=== PATIENT | female | born 1990 | race Caucasian/White ===

== ENCOUNTER 2021-05-05 10:54 | Observation (INO) | payer BC, SELFPAY ==
[2021-05-05 11:10] VITALS: BMI 29.4
[2021-05-05 11:37] LABS: Add Urine Microscopic? YES; Appearance Urine Cloudy (Clear); Bilirubin Urine Negative (Negative); Blood Urine Negative (Negative); Color Urine Yellow (Yellow); Glucose Urine UA Negative (Negative); Ketones Urine 1+ mg/dL (Negative); Leukocyte Esterase Ur 3+ LEU/UL (Negative); Mucus Urine Few /lpf; Nitrate Urine Negative (Negative); Protein Urine 1+ mg/dL (Negative); Specific Grav Ur 1.021 (1.001-1.035); Squamous Epithelial Cell Urine Many /hpf (Few); Urobilinogen Urine Negative mg/dL (<2.0); WBC Urine 16-20 /hpf
[2021-05-05] MEDS: LACTATED RINGERS 1,000 ML 999 ML IV CONT (11:46)
[2021-05-05 11:47] VITALS: BP 136/75; PULSE 93
[2021-05-05] MEDS: ONDANSETRON INJ 4 MG/2 ML VIAL IV PUSH (11:47)
--- NOTE | 2021-05-05 11:58 | PC.NURSE ---
called Dr. Oconnor notified pt admission for dizziness. UA result reported. pt feels better after PO hydration. Okay to discharge
[2021-05-05 11:59] VITALS: TEMP 36.8
[2021-05-05] MEDS: TERBUTALINE SULFATE 1 MG/ML VIAL 0.25 MG SUB-Q (12:33)
[2021-05-05] MEDS: DEXTROSE 5%/LACTATED RINGERS 1,000 ML 200 ML IV CONT (13:55)
[2021-05-05] MEDS: PROMETHAZINE HCL 25 MG/ML AMPUL 12.5 MG IV PUSH (13:59)
[2021-05-05] MEDS: METOCLOPRAMIDE HCL INJ 10 MG/2 ML VIAL IV PUSH (15:02)
--- NOTE | 2021-05-05 16:49 | P.HP_ITS ---
Obstetrics - Admit Note Admission Note: 30 y/o at 34 5/7 weeks who presented with upper abdominal pain. Good movement. After arrival here, she has had several episodes of nausea / vomiting. No fevers. Has had some contractions that responded to IV hydration. AVSS NST reactive TOCO: contractions irregularly ABD soft, nontender, gravid, vertex EXT nontender Cervix closed A; IUP at 34 5/7 weeks with nausea, vomiting. P: Home with [facility]. F/u office next week.
== END 2021-05-05 17:40 | disposition home or self-care (01) ==
PROVIDERS: Admitting Provider Obstetrics & Gynecology; PCP Family Medicine; Visit Provider Obstetrics & Gynecology
DX: O26.893 Other specified pregnancy related conditions, third trimester (principal); R10.10 Upper abdominal pain, unspecified; Z3A.34 34 weeks gestation of pregnancy
CPT/HCPCS: 81001; 87086; 87088; 96372; 96374; 96375; G0378; G0379; J2405; J2550; J2765; J3105; J7120; J7121

== ENCOUNTER 2021-06-02 22:17 | Inpatient (IN) | payer BC, SELFPAY ==
[2021-06-02] VITALS (22 sets, daily range): BP systolic 106–142; BP diastolic 51–95; PULSE 66–129; RESP 18; TEMP 36.6–36.7; O2SAT 98–100; BMI 29.2
[2021-06-02] MEDS: LACTATED RINGERS 1,000 ML 125 ML IV CONT (22:31)
--- NOTE | 2021-06-02 22:47 | LDADM ---
This patient, Annalee Viera, was admitted to Labor/Delivery/Recovery 106 on 06/02/21 at 22:17. Plans for labor, pain management and were discussed with patient. Patient/family oriented to hospital policies and general routines including ID bracelet, bed and alarms, visiting hours, pain management, procedures, bathroom and other care routines, personal items, smoking policy, room service/diet and guest tray routines, infant security routines, and visiting hours. Patient/Family are encouraged to report perceived risks to care and to ask questions if they do not understand what they are told or what they should do. See OBIX for further documentation.
[2021-06-02 22:50] LABS: Basophils Percent Auto 0.2 % (0.2-1.2); Eosinophils Percent Auto 0.2 % (0-4.4); Hematocrit 32.4 % (37.0-47.0); Hemoglobin 10.3 g/dL (12.0-15.0); Immature Granulocyte Absolute 0.06 K/mm3 (0.00-0.031); Immature Granulocyte Percent A 0.4 % (0-0.5); Lymphocytes Absolute Auto 2.32 K/mm3 (0.9-3.2); Lymphocytes Percent Auto 17.1 % (18.3-44.2); Mean Corpuscular HGB Conc 31.8 g/dl (32-36); Mean Corpuscular Hemoglobin 25.8 pg (26-34); Mean Corpuscular Volume 81.2 fl (80-100); Mean Platelet Volume 10.7 fl (7.4-10.4); Monocytes Absolute Auto 0.9 K/mm3 (0.1-0.6); Monocytes Percent Auto 6.9 % (2.6-8.5); Neutrophils Absolute Auto 10.2 K/mm3 (1.3-6.7); Neutrophils Percent Auto 75.2 % (45.5-73.1); Platelet Count Result 258 k/mm3 (150-375); Red Blood Count 3.99 M/mm3 (4.2-5.4); Red Cell Distribution Width 14.5 % (11.5-14.5); White Blood Count 13.6 K/mm3 (4.5-10.0)
--- NOTE | 2021-06-02 23:12 | WPDANESEPP ---
Anes - Eval Pre Procedure Procedure: labor epidural Date/Time: 06/02/21 23:12 Surgeon: anurag Pre Op Diagnosis: Contractions Patient Data Age: 30 Gender: F Height: 1.6 m Weight: 75 kg Last Vital Signs Pulse 93 06/02/21 23:01 BP 142/95 H 06/02/21 23:01 Allergies Allergy/AdvReac Type Severity Reaction Status Date / Time No Known Allergies Allergy Verified 05/02/20 08:39 Home Medications Medication Instructions Recorded Confirmed Type albuterol sulfate 90 mcg/actuation 1 puff INHALATION Q4H PRN #8.5 gm 05/07/19 05/12/21 Rx aerosol inhaler cyanocobalamin (vitamin B-12) 1,000 mcg PO DAILY 11/02/19 05/12/21 History 1,000 mcg tablet prenat.vits,brian,tch-insd-gxftf 1 tablet PO DAILY 10/31/20 05/12/21 History metoclopramide HCl [Reglan] 10 mg PO Q6H PRN #30 tablet 05/05/21 05/12/21 Rx Laboratory Tests 06/02/21 06/02/21 22:45 22:45 WBC 13.6 K/mm3 H K/mm3 (4.5-10.0) RBC 3.99 M/mm3 L M/mm3 (4.2-5.4) Hgb 10.3 g/dL L g/dL (12.0-15.0) Hct 32.4 % L % (37.0-47.0) MCV 81.2 fl fl (80-100) MCH 25.8 pg L pg (26-34) MCHC 31.8 g/dl L g/dl (32-36) RDW 14.5 % % (11.5-14.5) Plt Count 258 k/mm3 k/mm3 (150-375) MPV 10.7 fl H fl (7.4-10.4) Immature Gran % (Auto) 0.4 % % (0-0.5) Neut % (Auto) 75.2 % H % (45.5-73.1) Lymph % (Auto) 17.1 % L % (18.3-44.2) [place] % (Auto) 6.9 % % (2.6-8.5) Eos % (Auto) 0.2 % % (0-4.4) Baso % (Auto) 0.2 % % (0.2-1.2) Lymph # (Auto) 2.32 K/mm3 K/mm3 (0.9-3.2) [place] # (Auto) 0.9 K/mm3 H K/mm3 (0.1-0.6) Eos # (Auto) 0.0 K/mm3 K/mm3 (0-0.3) Baso # (Auto) 0.0 K/mm3 K/mm3 (0.0-0.1) Abs Immat Gran (auto) 0.06 K/mm3 H K/mm3 (0.00-0.031) Absolute Neuts (auto) 10.2 K/mm3 H K/mm3 (1.3-6.7) Absolute Nucleated RBC 0.0 K/mm3 K/mm3 (0.0-0.012) Nucleated RBC % 0.0 % % (0.0-0.2) RPR Pending Patient hx anesthesia problems: none Family hx anesthesia problems: none Results Review: All pre-operative results and documents have been reviewed as part of the pre-operative evaluation. [facility] Past Medical History Medical History (Updated 10/31/20 @ 08:58 by De Bhatia MD) BMI 24.0-24.9, adult Incidental Migraine with aura and without status migrainosus Mild exercise-induced asthma Mixed hyperlipidemia Psoriasis Seasonal allergies Vitamin B12 deficiency anemia Surgical History Surgical History H/O breast augmentation Family History Family History (Updated 06/02/21 @ 22:59 by Elise Alexander RN) Father , Overdosed on medication Brain tumor Grandparent , Paternal Grandfather Lung cancer, middle lobe Mother Hypertension Social History Social History (Updated 10/31/20 @ 08:41 by Jackeline Rizzo MA) Smoking status: Never smoker Second hand tobacco smoke exposure: No Alcohol intake: former Alcohol use details: Wine once every other month Substance use: never Substance use type: does not use Spiritual care concerns: No Exam Day of Procedure 06/02/21 23:12
[2021-06-03] VITALS (46 sets, daily range): BP systolic 87–141; BP diastolic 55–90; PULSE 63–172; RESP 16–18; TEMP 36.1–36.9; O2SAT 100
[2021-06-03] MEDS: LACTATED RINGERS 1,000 ML 125 ML IV CONT
[2021-06-03] MEDS: OXYTOCIN 30 UNITS/NS 500 ML 30 UNITS/500 ML BAG 999 UNITS IV CONT (01:45)
--- NOTE | 2021-06-03 01:58 | WPDOBADMIT ---
Obstetrics - Admit Note Admission Note: record reviewed. Additions to the history and/or subsequent changes in the physical findings follow. 30 y/o at 38 6/7 weeks here with contractions. Comfortable with epidural. GBS neg. Cervix 6 cm on admission, completely dilated after epidural placed. AVSS NST reactive TOCO: contractions every 2-3 min ABD soft, nontender, gravid, vertex EXT nontender Cervix C/+2 A: IUP at term with labor. P: See delivery note.
--- NOTE | 2021-06-03 02:00 | P.PCNOB_ITS ---
OB - Delivery Note Procedure Delivery date: 06/03/21 Procedure: Induction method: None Delivery monitor: External FHT and External Uterine Route of delivery: Laceration Description: Periurethral (right) Delivery repair: vicryl (3-0) Specimen: Yes (cord blood) Quantitative Blood Loss (ml): 180 Anesthesia type: Epidural Disposition: PACU Complications: None Narrative: 30 y/o at 38 6/7 weeks gestation who presented to the hospital with contractions. Cervix 6 cm on admission. Labor was diagnosed. She received an epidural for pain control. Her labor progressed and her cervix dilated completely. SROM with clear fluid. She pushed with good effort and delivered the 's head to the perineum. A loose nuchal cord was splinted and the body delivered. The cord was reduced and the nose and mouth were bulb suctioned. After a delay, the cord was clamped and cut. The infant was handed off the field. Cord blood was collected. The placenta delivered spontaneously and was grossly normal in appearance. The usual 3 vessel cord was noted. A right sided periurethral laceration was sustained. This was reapproximated using 3 0 Vicryl in interrupted figure of eight fashion. Excellent hemostasis resulted as did excellent reapproximation of the normal anatomy. Needle and instrument counts were correct. The patient was taken to recovery room in s table condition. The went to the nursery in stable condition. I was present and scrubbed for the entire delivery. [place] Baby Date of : 06/03/21 Time of : 02:00 Weeks of gestation at delivery: 38 Infant gender: Male Weight (pounds): 6 Weight (ounces): 13 presentation: vertex position: Left Occiput Anterior Placenta delivery description: Spontaneous and Normal Configuration Cord Vessel Description: 3 Vessels, Nuchal Cord and Delayed Cord Clamping score one minute: 9 score five minutes: 9
--- NOTE | 2021-06-03 02:03 | P.DS_ITS ---
DS: Admitting Diagnosis Discharge Date 06/04/21 Admitting Diagnosis IUP at 38 6/7 weeks Labor DS: Discharge Diagnosis Discharge Diagnosis (1) (normal spontaneous vaginal delivery): Code(s): O80 - Encounter for full-term uncomplicated delivery Status: Acute OB - DS: Summary OB Procedures : None OB Procedures Intrapartum: Spontaneous Vag Delivery OB Procedures: : None DS: Data Data Completed and Pending Labs on day of discharge: Labs from last 24 hours 06/02/21 06/02/21 06/02/21 22:46 22:45 22:45 WBC 13.6 H RBC 3.99 L Hgb 10.3 L Hct 32.4 L MCV 81.2 MCH 25.8 L MCHC 31.8 L RDW 14.5 Plt Count 258 MPV 10.7 H Immature Gran % (Auto) 0.4 Neut % (Auto) 75.2 H Lymph % (Auto) 17.1 L [place] % (Auto) 6.9 Eos % (Auto) 0.2 Baso % (Auto) 0.2 Lymph # (Auto) 2.32 [place] # (Auto) 0.9 H Eos # (Auto) 0.0 Baso # (Auto) 0.0 Abs Immat Gran (auto) 0.06 H Absolute Neuts (auto) 10.2 H Absolute Nucleated RBC 0.0 Nucleated RBC % 0.0 RPR Pending Blood Type A Positive Antibody Screen Negative Discharge Plan Discharge Attending physician on discharge: Gopal Escobar Discharging Clinician: Gopal Escobar Patient Disposition: Home, Self-Care Activity: pelvic rest Diet: regular Discharge Instructions: Call or return if temperature above 100.4? F, increased abdominal pain, increased vaginal bleeding or any new problems. Stand Alone Forms: General Discharge Information Follow-up/Referrals: Gopal Escobar MD [Physician] - 6 Weeks Discharge Medications: New ibuprofen 600 mg tablet 600 mg PO Q6H PRN (Reason: cramps) Qty: 30 RF: 0 ferrous sulfate 325 mg (65 mg iron) tablet 325 mg PO DAILY Qty: 30 RF: 0 Continued albuterol sulfate [ProAir HFA] 90 mcg/actuation HFA aerosol inhaler 1 puff INHALATION Q4H PRN (Reason: shortness of breath) Qty: 8.5 RF: 11 cyanocobalamin (vitamin B-12) 1,000 mcg tablet 1,000 mcg PO DAILY RF: 0 prenat.vits,brian,cju-bflp-ibqsi Tablet 1 tablet PO DAILY RF: 0 Discontinued metoclopramide HCl [Reglan] 10 mg tablet 10 mg PO Q6H PRN (Reason: nausea and vomiting) Qty: 30 RF: 0 Date of admission: 06/02/21 22:17 Primary Care Provider: De Bhatia Admitting Provider: Gopal Escobar Attending physician on admission: Gopal Escobar Condition: Stable
[2021-06-03] MEDS: OXYTOCIN 30 UNITS/NS 500 ML 30 UNITS/500 ML BAG 125 UNITS IV CONT (02:22)
[2021-06-03] MEDS: IBUPROFEN 600 MG TABLET PO ×3 (04:37→19:01)
--- NOTE | 2021-06-03 05:03 | OBPPTRN ---
Patient transferred to post room #288 via W/C. Support person present. Oriented to unit, room, information board, rooming in, admission packet and security measures. Patient verbalizes understanding.
[2021-06-03] MEDS: WITCH HAZEL 40 PADS 1 PAD TOPICAL (09:19)
[2021-06-03] MEDS: DOCUSATE SODIUM 100 MG CAPSULE PO ×2 (09:19→19:01)
[2021-06-03] MEDS: MULTIVIT/MIN/PREN/FOL AC/IRON TABLET 1 TAB PO (09:19)
[2021-06-03] MEDS: ACETAMINOPHEN 325 MG TABLET 650 MG PO ×2 (09:19→23:57)
[2021-06-03] MEDS: POLYSACCHARIDE IRON COMPLEX 150 MG CAPSULE PO (19:00)
[2021-06-04] MEDS: IBUPROFEN 600 MG TABLET PO ×2 (04:05→13:42)
[2021-06-04 05:47] LABS: Hematocrit 29.5 % (37.0-47.0); Hemoglobin 9.3 g/dL (12.0-15.0)
[2021-06-04] MEDS: POLYSACCHARIDE IRON COMPLEX 150 MG CAPSULE PO (08:12)
[2021-06-04] MEDS: DOCUSATE SODIUM 100 MG CAPSULE PO (08:12)
[2021-06-04] MEDS: MULTIVIT/MIN/PREN/FOL AC/IRON TABLET 1 TAB PO (08:13)
[2021-06-04 08:22] VITALS: BP 122/81; PULSE 81; RESP 14; TEMP 36.5; O2SAT 99
[2021-06-04] MEDS: ACETAMINOPHEN 325 MG TABLET 650 MG PO (08:24)
--- NOTE | 2021-06-04 10:50 | WPDANLDPN2 ---
Anes-Prog Note L&D Date/Time: 06/04/21 10:50 Comfortable throughout: labor and delivery Neuraxial method: epidural Epidural/Spinal procedure site: clean & non-tender Neuro status: Neuro function grossly intact. Cardiovascular status: normal Respiratory status: normal Airway patency: baseline Mental status: baseline Post-Op hydration status: normal Vital Signs: Last Vital Signs Temp 97.7 F 06/04/21 08:22 Pulse 81 06/04/21 08:22 Resp 14 06/04/21 08:22 BP 122/81 06/04/21 08:22 Pulse Ox 99 06/04/21 08:22 Pain score (VAS): 0 I/O: Intake & Output 06/03/21 06/04/21 06/04/21 23:59 07:59 15:59 Intake Total 350 Balance 350 Post-procedural complaints: none Patient feedback: Patient satisfied with anesthetic care.
--- NOTE | 2021-06-04 10:58 | PM.OBPNVD ---
OB - PN: Subj Subjective Date/time seen: 06/04/21 10:58 Narrative: Pain OK. Desires circumcision for son. Would like to go home. OB - PN: Obj Data Labs CBC & Chem 7: 06/04/21 04:12 Labs: Laboratory Results - last 24 hr 06/04/21 04:12 Hgb 9.3 L Hct 29.5 L OB - PN A/P Plan Comments: A: PPD#1, doing well. P: Reviewed circ. Home to f/u 6 weeks. Exam Psych: Other: AVSS ABD soft, nontender, fundus firm EXT nontender
--- NOTE | 2021-06-04 14:06 | PC.NURSE ---
Patient viewed the discharge video Mother & Baby Care, The First Two Weeks . Patient was given the opportunity and encouraged to ask questions. Patient verbalized understanding of information shared and has been given the mother/baby guide for home reference.
[2021-06-05 07:54] VITALS: BP 119/71; PULSE 73; RESP 20; TEMP 36.8; O2SAT 100
[2021-06-05 13:00] LABS: Rapid Plasma Reagin Non-Reactive (NonReactive)
== END 2021-06-04 13:52 | disposition home or self-care (01) | DRG 807 ==
LOC: ANHLDR 06-03 02:04 → ANHOB2 06-03 05:50
PROVIDERS: Admitting Provider Obstetrics & Gynecology; PCP Family Medicine; Visit Provider Obstetrics & Gynecology
DX: O69.81X0 Labor and delivery complicated by cord around neck, without compression, not applicable or unspecified (principal); Z37.0 Single live birth; Z3A.37 37 weeks gestation of pregnancy; O71.82 Other specified trauma to perineum and vulva; O99.72 Diseases of the skin and subcutaneous tissue complicating childbirth; L40.9 Psoriasis, unspecified; O99.02 Anemia complicating childbirth; D51.9 Vitamin B12 deficiency anemia, unspecified; O99.52 Diseases of the respiratory system complicating childbirth; J45.909 Unspecified asthma, uncomplicated
CPT/HCPCS: 36415; 85014; 85018; 85025; 86592; 86850; 86900; 86901; A9270; J2590; J2795; J7120

== ENCOUNTER 2022-06-24 10:10 | Emergency (ER) | payer BC, SELFPAY ==
[2022-06-24 10:25] VITALS: BP 119/67; PULSE 77; RESP 16; TEMP 36.3; O2SAT 100
--- NOTE | 2022-06-24 10:39 | ED.GENADULT ---
HPI - General Adult General Chief complaint: Upper Respiratory Infection Stated complaint: sorethroat Time Seen by Provider: 06/24/22 10:39 Source: patient Mode of arrival: ambulatory Limitations: no limitations History of Present Illness HPI narrative: 31-year-old female patient presents to the [facility] have is rest past several weeks. Patient states when he has strep her son has tested positive twice and her tested positive today. Patient does not complain of any pain to the throat. Patient states she recently got over COVID and is currently on an inhaler at this time with the steroid. Denies any fevers, body aches or chills. Patient states she did wake up today with a headache pain Related Data Home Medications Medication Instructions Recorded Confirmed cyanocobalamin (vitamin B-12) 1,000 mcg PO DAILY 11/02/19 06/24/22 1,000 mcg tablet rizatriptan 10 mg tablet (Maxalt) See Rx Instructions PO .COMPLEX 11/21/21 06/24/22 Migraines fluticasone propionate 110 2 puff inhalation BID 06/24/22 06/24/22 mcg/actuation HFA aerosol inhaler (Flovent HFA) Allergies Allergy/AdvReac Type Severity Reaction Status Date / Time No Known Allergies Allergy Verified 06/24/22 10:35 Review of Systems Review of Systems: CONSTITUTIONAL: Denies fever, chills, or sweats. EYES: Denies visual changes, redness, or discharge. ENT: Denies rhinorrhea, congestion,positive sore throat, or otalgia. CARDIOVASCULAR: Denies chest pain, palpitations, or edema. RESPIRATORY: Denies cough or dyspnea. GASTROINTESTINAL: Denies abdominal pain, nausea, vomiting, or diarrhea. GENITOURINARY: Denies dysuria or hematuria. SKIN: Denies rash or itching. MUSCULOSKELETAL: Denies back pain, joint pain, or myalgia. NEUROLOGIC: Denies headache, numbness, or weakness. PSYCHIATRIC: Denies anxiety or depression. [facility] Past Medical History Medical History Anemia BMI 24.0-24.9, adult BMI 25.0-25.9,adult BMI 26.0-26.9,adult Incidental Migraine with aura and without status migrainosus Mild exercise-induced asthma Mild intermittent asthma Mixed hyperlipidemia (normal spontaneous vaginal delivery) Psoriasis Seasonal allergies Vitamin B12 deficiency anemia Surgical History Surgical History H/O breast augmentation Family History Family History Father , Overdosed on medication Brain tumor Grandparent , Paternal Grandfather Lung cancer, middle lobe Mother Hypertension Social History Social History Smoking status: Never smoker Second hand tobacco smoke exposure: No Alcohol intake: former Alcohol use details: Wine once every other month Substance use: never Substance use type: does not use Lack of Transportation: No Lack of Food: Never True Current Housing: I Have Housing Concerned About Future Housing: No Difficulty Paying Gas/Electric Bills: No Difficulty Paying for Meds: No Currently Unemployed: No Education: Trade/Vocational Certificate Difficulty w/ Childcare or Family Care: No Spiritual care concerns: No Comments At the time of my signature I agree with nursing past medical history, surgical, social, and family history. There is no relevant family history pertinent to the presenting complaint. Exam Narrative: GENERAL: Well-appearing, well-nourished, and in no acute distress. HEAD: Normocephalic, atraumatic. EYES: PERRLA and EOMI. ENT: Nares with erythema and edema noted bilaterally, no rhinorrhea or epistaxis. Mucous membranes moist. bilateral TMs are clear no erythema from bodies the canal. Posterior pharynx with slight erythema but no tonsillar enlargement, no exudates or lesions present. NECK: Supple. No lymphadenopathy CHEST: Clear to auscul
== END 2022-06-24 10:47 | disposition home or self-care (01) ==
PROVIDERS: Emergency Provider Nurse Practitioner Family; PCP Family Medicine
DX: J02.9 Acute pharyngitis, unspecified (principal); J45.909 Unspecified asthma, uncomplicated; E78.2 Mixed hyperlipidemia; D51.9 Vitamin B12 deficiency anemia, unspecified
CPT/HCPCS: 87081; 87880; 99213; G0463

== ENCOUNTER 2022-11-26 09:49 | Emergency (ER) | payer BC, SELFPAY ==
[2022-11-26 09:59] VITALS: BP 120/75; PULSE 93; RESP 16; TEMP 36.5; O2SAT 99
[2022-11-26 10:03] VITALS: BP 120/75; PULSE 93; RESP 16; TEMP 36.5; O2SAT 99
--- NOTE | 2022-11-26 10:06 | ED.URI ---
HPI - URI/Sore Throat General Chief Complaint: Upper Respiratory Infection Stated Complaint: Sore Throat Time Seen by Provider: 11/26/22 10:07 Source: patient Mode of arrival: ambulatory Limitations: no limitations History of Present Illness HPI Narrative: 32-year-old female presents with complaint sore throat, fatigue, sweats for the past 3 days. Reports that sore throat getting progressively worse. Today noticed white patches to back throat. Afebrile. Denies nausea vomiting. All systems reviewed and negative except as noted above. Related Data Home Medications Medication Instructions Recorded Confirmed cyanocobalamin (vitamin B-12) 1,000 mcg PO DAILY 11/02/19 11/26/22 1,000 mcg tablet albuterol sulfate 90 mcg/actuation 1 puff inhalation Q4H PRN 11/26/22 11/26/22 aerosol inhaler (ProAir HFA) Shortness Of Breath Or Wheezing rizatriptan 10 mg tablet (Maxalt) See Rx Instructions PO .COMPLEX 11/26/22 11/26/22 PRN Migraines Allergies Allergy/AdvReac Type Severity Reaction Status Date / Time No Known Allergies Allergy Verified 11/26/22 10:00 Review of Systems Review of Systems: CONSTITUTIONAL: Denies fever, chills. Reports fatigue, sweats. EYES: Denies visual changes, redness, or discharge. ENT: Denies rhinorrhea, congestion . Reports sore throat. Denies otalgia. CARDIOVASCULAR: Denies chest pain, palpitations, or edema. RESPIRATORY: Denies cough or dyspnea. GASTROINTESTINAL: Denies abdominal pain, nausea, vomiting, or diarrhea. GENITOURINARY: Denies dysuria or hematuria. SKIN: Denies rash or itching. MUSCULOSKELETAL: Denies back pain, joint pain, or myalgia. NEUROLOGIC: Denies headache, numbness, or weakness. PSYCHIATRIC: Denies anxiety or depression. All other systems reviewed are negative, except as documented in HPI. [facility] Past Medical History Medical History (Updated 11/26/22 @ 10:13 by Taniya Caruso NP) Anemia Anxiety BMI 24.0-24.9, adult BMI 25.0-25.9,adult BMI 26.0-26.9,adult Incidental Migraine with aura and without status migrainosus Mild exercise-induced asthma Mild intermittent asthma Mixed hyperlipidemia (normal spontaneous vaginal delivery) Numbness Psoriasis Seasonal allergies Vitamin B12 deficiency anemia Surgical History Surgical History H/O breast augmentation Family History Family History Father , Overdosed on medication Brain tumor Grandparent , Paternal Grandfather Lung cancer, middle lobe Mother Hypertension Social History Social History (Updated 10/19/22 @ 15:28 by Allison Rodriguez [facility]) Smoking status: Never smoker Second hand tobacco smoke exposure: No Alcohol intake: current Alcohol use details: Wine once every other month Substance use: never Substance use type: does not use Lack of Transportation: No Lack of Food: Never True Current Housing: I Have Housing Concerned About Future Housing: No Difficulty Paying Gas/Electric Bills: No Difficulty Paying for Meds: No Currently Unemployed: No Education: Trade/Vocational Certificate Difficulty w/ Childcare or Family Care: No Spiritual care concerns: No Comments At time of signature, agree with nursing past medical, surgical, social and family history. There is no relevant family history pertinent to the presenting complaint. Exam Narrative: GENERAL: This is a well-nourished, well-developed patient, in no apparent distress. HEAD: normocephalic, atraumatic. EYES: PERRL. Sclera clear/white. Vision is grossly intact. EARS: External ears normal, auditory canals clear and without drainage, TMs normal without perforation. Hearing grossly intact. NOSE: External nose normal with no obvious nasal discharge, nares without redness, no rhinorrhea. THROAT: Mucous membranes moist, erythematous, tonsils 1+ bilaterally with ex
== END 2022-11-26 10:14 | disposition home or self-care (01) ==
PROVIDERS: Emergency Provider Nurse Practitioner Family; PCP Family Medicine
DX: J02.0 Streptococcal pharyngitis (principal); J45.909 Unspecified asthma, uncomplicated; E78.2 Mixed hyperlipidemia; L40.9 Psoriasis, unspecified; D51.9 Vitamin B12 deficiency anemia, unspecified
CPT/HCPCS: 87081; 87880; 99213; G0463

== ENCOUNTER 2023-03-08 08:49 | Emergency (ER) | payer BC, SELFPAY ==
--- NOTE | ~2023-03-08 | XR_ITS ---
EXAMINATION: XR chest 2V 03/08/2023 09:28 INDICATION: Back pain. Asthma. Cough. PROCEDURE: 2 view chest COMPARISON: No prior studies for comparison. FINDINGS: The lungs are clear. The cardiomediastinal silhouette is within normal limits. There are no pleural effusions. There is no pneumothorax suspected. IMPRESSION: 1: NO ACUTE CARDIOPULMONARY DISEASE. Reviewed, dictated and finalized at location A. [employer] [employer]
[2023-03-08 08:57] VITALS: BP 126/72; PULSE 83; RESP 16; TEMP 36.6; O2SAT 100
--- NOTE | 2023-03-08 09:04 | ED.URI ---
HPI - URI/Sore Throat General Chief Complaint: Upper Respiratory Infection Stated Complaint: Cough Time Seen by Provider: 03/08/23 09:04 Source: patient Mode of arrival: ambulatory Limitations: no limitations History of Present Illness HPI Narrative: Annalee is a 32-year-old female patient presenting to clinic today with complaints of a cough times. She reports history of intermittent asthma. Is blowing out some green nasal drainage. Just started prednisone yesterday and is taking albuterol inhaler and budesonide inhaler. Denies any fever or chills. Does report some shortness of breath and some pain in her back. MD elicited complaint: cough and nasal congestion Related Data Home Medications Medication Instructions Recorded Confirmed cyanocobalamin (vitamin B-12) 1,000 mcg PO DAILY 11/02/19 03/08/23 1,000 mcg tablet albuterol sulfate 90 mcg/actuation 1 puff inhalation Q4H PRN 11/26/22 03/08/23 aerosol inhaler (ProAir HFA) Shortness Of Breath Or Wheezing sumatriptan succinate 100 mg tablet See Rx Instructions PO .COMPLEX 12/05/22 03/08/23 zonisamide 25 mg capsule 25 mg PO DAILY 03/08/23 03/08/23 Allergies Allergy/AdvReac Type Severity Reaction Status Date / Time No Known Allergies Allergy Verified 03/08/23 09:01 Review of Systems Review of Systems: Pertinent positives per HPI. Patient denies any fever, chills, rash, headache, visual changes, dizziness, shortness of breath, chest pain, palpitations, nausea, vomiting, diarrhea, constipation, abdominal pain, or any urinary issues. [facility] Past Medical History Medical History Anemia Anxiety BMI 24.0-24.9, adult BMI 25.0-25.9,adult BMI 26.0-26.9,adult Incidental Migraine with aura and without status migrainosus Mild exercise-induced asthma Mild intermittent asthma Mixed hyperlipidemia (normal spontaneous vaginal delivery) Numbness Psoriasis Seasonal allergies Vitamin B12 deficiency anemia Surgical History Surgical History H/O breast augmentation Family History Family History Father , Overdosed on medication Brain tumor Grandparent , Paternal Grandfather Lung cancer, middle lobe Mother Hypertension Social History Social History Smoking status: Never smoker Second hand tobacco smoke exposure: No Alcohol intake: current Alcohol use details: Wine once every other month Substance use: never Substance use type: does not use Lack of Transportation: No Lack of Food: Never True Current Housing: I Have Housing Concerned About Future Housing: No Difficulty Paying Gas/Electric Bills: No Difficulty Paying for Meds: No Currently Unemployed: No Education: Trade/Vocational Certificate Difficulty w/ Childcare or Family Care: No Spiritual care concerns: No Comments At the time of my signature, I reviewed and agree with the nursing past medical, surgical, social, and family history. There is no relevant family history pertinent to the patient complaint. Exam Narrative: General: Well-developed, well nourished, in no apparent distress Head: Normocephalic, atraumatic Eyes: Pupils equally round and reactive to light bilaterally, EOM intact, sclera and conjunctive clear, no discharge, lids normal Ears: TMs intact and clear, ear canals clear, no drainage, grossly hearing normal. Nose: Nares patent, clear nasal discharge, no inflammation, no sinus tenderness. Mouth: Oral pharynx without lesions or masses, good dentition, MMM. Neck: Supple, trachea midline, no enlargement of anterior or posterior cervical nodes, no thyroid masses or goiter palpable. Cardio: Regular rate and rhythm, s1 and s2 normal, no murmur appreciated. Resp: Clear to auscultation bila
== END 2023-03-08 09:48 | disposition home or self-care (01) ==
PROVIDERS: Emergency Provider Nurse Practitioner Family; PCP Family Medicine
DX: R05.1 Acute cough (principal); J06.9 Acute upper respiratory infection, unspecified; J45.20 Mild intermittent asthma, uncomplicated; E78.2 Mixed hyperlipidemia; E53.8 Deficiency of other specified B group vitamins; F41.9 Anxiety disorder, unspecified
CPT/HCPCS: 71046; 99213; G0463